=== PATIENT | female | born 1970 | race Caucasian/White ===

== ENCOUNTER 2017-05-14 12:00 | Day surgery (SDC) | payer OTHER ==
[2017-05-14] MEDS ORDERED: LIDOCAINE 2% (SDV) 5 ML INJ (14:17)
[2017-05-14] MEDS ORDERED: PROPOFOL 40 ML (14:17)
[2017-05-14] MEDS ORDERED: MIDAZOLAM 1 MG/ML 2 ML INJ (15:05)
== END 2017-05-14 18:58 | disposition home or self-care (01) ==
LOC: GIL 12:00
DX: K29.50 Unspecified chronic gastritis without bleeding (principal); K64.8 Other hemorrhoids; K20.9 Esophagitis, unspecified
CPT/HCPCS: 43239; 84703; 88305; 88312; 88313

== ENCOUNTER 2017-10-08 12:41 | Day surgery (SDC) | payer OTHER ==
[2017-10-08] MEDS ORDERED: PROPOFOL 40 ML (15:56)
== END 2017-10-08 17:08 | disposition home or self-care (01) ==
LOC: GIL 12:41
DX: K29.70 Gastritis, unspecified, without bleeding (principal)
CPT/HCPCS: 43239; 88305; 88312